=== PATIENT | male | born 1955 | race Two or more races ===

== ENCOUNTER 2017-10-31 07:17 | Day surgery (SDC) | payer BC, OTHER ==
[~2017-10-31] VITALS: Ht 172.7 cm; Wt 84.4 kg
[2017-10-31] VITALS (9 sets, daily range): BP systolic 107–125; BP diastolic 67–80
[2017-10-31] MEDS ORDERED: fentaNYL 100 mcg/2 mL IV ONE (07:40)
[2017-10-31] MEDS ORDERED: Propofol 200mg/20ml IV ONE (07:41)
--- NOTE | 2017-10-31 07:47 | Short Stay Surgery H&P ---
History of Present Illness History of Present Illness Chief Complaint Patients is receiving screening colonoscopy and upper endoscopy for abdominal pains. YANDY Robles is a 62 year old male who was admitted on for Colon Screening , abdominal pains Patient History Allergies: Coded Allergies: No Known Allergies (Unverified , 10/31/17) PAST MEDICAL HISTORY: (1) Hyperlipidemia (2) Hypertension Review of Systems Cardiovascular: Reports: no symptoms, hypertension Respiratory: Reports: no symptoms Skeletal: Reports: no symptoms Gastrointestinal: Reports: gastro esophageal reflux disease Genitourinary: Reports: no symptoms Neurologic: Reports: no symptoms Endocrine: Reports: no symptoms Hematologic: Reports: no symptoms Physical Exam Skin: normal HENT: normal Heart: normal Lungs: normal Abdomen: normal Extremities: normal Genitourinary: normal Plan Plan of Care Upper and lower GI endoscopies Preop Interventions None. Summary of Findings See the reports Attestation Are the patient's medical conditions optimized for surgery? Attestation Response: yes Nelson Malik MD Oct 31, 2017 07:47
--- NOTE | 2017-10-31 07:48 | Pre-Procedure Note/Attestation ---
Pre-Procedure Note/Attestation Complete Prior to Procedure Planned Procedure: left Procedure Narrative: Examinations of the upper and the lower GI tract via endoscopy Indications for Procedure Pre-Operative Diagnosis: R/O colon cancer and gastritis/peptic ulcer. Attestation I attest that I discussed the nature of the procedure; its benefits; risks and complications; and alternatives (and the risks and benefits of such alternatives ), prior to the procedure, with the patient (or the patient's legal retail field representative). I attest that, if there was a reasonable possibility of needing a blood transfusion, the patient (or the patient's legal retail field representative) was given the [facility] standardized written summary, pursuant to the Terrence Tano Blood Safety Act ([place] Health and Safety Code # 1645, as amended). I attest that I re-evaluated the patient just prior to the surgery and that there has been no change in the patient's H&P, except as documented below: Nelson Malik MD Oct 31, 2017 07:48
[2017-10-31] MEDS ORDERED: ASPIR 8181 MG ORAL (07:54)
[2017-10-31] MEDS ORDERED: METFORMIN HCL500 M1 ORAL (07:54)
[2017-10-31] MEDS ORDERED: ATORVASTATIN CA20 MG ORAL (07:54)
[2017-10-31] MEDS ORDERED: BP MED PO (07:54)
[2017-10-31] MEDS ORDERED: VITAMIN D1000 UNI1 ORAL (07:54)
[2017-10-31] MEDS ORDERED: LR 1000ml 1,000 ML IVLG SCH (07:58)
--- NOTE | 2017-10-31 07:58 | Anethesia Preoperative Eval ---
Anesthesia Pre-op PMH/ROS General Date of Evaluation: Oct 31, 2017 Time of Evaluation: 08:00 Anesthesiologist: ASA Score: ASA 2 Mallampati Score Class I : Soft palate, uvula, fauces, pillars visible Class II: Soft palate, uvula, fauces visible Class III: Soft palate, base of uvula visible Class IV: Only hard plate visible Mallampati Classification: Class II Surgeon: angel Diagnosis: abdominal pain Surgical Procedure: colonoscopy screening, egd Allergies: Coded Allergies: No Known Allergies (Unverified , 10/31/17) Medications: see eMAR Past Medical History Cardiovascular: Reports: HTN; Denies: CAD, [place], valve dz, arrhythmia, other Pulmonary: Denies: asthma, COPD, MELE, other Gastrointestinal/Genitourinary: Reports: GERD; Denies: CRI, ESRD, other Neurologic/Psychiatric: Reports: depression/anxiety; Denies: dementia, CVA, TIA, other Endocrine: Denies: DM, hypothyroidism, steroids, other HEENT: Denies: cataract (L), cataract (R), glaucoma, [place] (L), [place] (R), other Hematology/Immune: Denies: anemia, DVT, bleeding disorder, other Musculoskeletal/Integumentary: Denies: OA, RA, DJD, DDD, edema, other Anesthesia Pre-op Phys. Exam Physician Exam Last Vital Signs Date Time Temp Pulse Resp B/P (MAP) Pulse Ox O2 Delivery O2 Flow Rate FiO2 10/31/17 07:44 Room Air Constitutional: NAD Cardiovascular: RRR Respiratory: CTA Gastrointestinal: S/NT/ND Airway Exam Mallampati Score: Class II MO: full ROM: full Teeth: intact Dentures: no upper, no lower Anesthesia Pre-op A/P Risk Assessment & Plan Assessment: asa 2 Plan: MAC Status Change Before Surgery: No Pre-Antibiotics Drug: none Teresa Marr M.D. Oct 31, 2017 07:58
[2017-10-31] MEDS ORDERED: LR 1000ml ONE (08:00)
[2017-10-31] MEDS ORDERED: DiphenhydrAMINE 50mg/ml Inj IVP PRN (08:00)
[2017-10-31] MEDS ORDERED: Lidocaine 1% MPF 10mg/ml 5ml ONE (08:00)
[2017-10-31] MEDS ORDERED: fentaNYL 100 mcg/2 mL IV PRN (08:00)
--- NOTE | 2017-10-31 08:44 | Immediate Post-Op Evaluation ---
Immediate Post-Op Evalulation Immediate Post-Op Evalulation Procedure: egd, colonoscopy Date of Evaluation: Oct 31, 2017 Time of Evaluation: 08:46 IV Fluids: LR 500ml Blood Products: 0 Estimated Blood Loss: 0 Urinary Output: 0 Blood Pressure Systolic: 107 Blood Pressure Diastolic: 68 Pulse Rate: 51 Respiratory Rate: 14 O2 Sat by Pulse Oximetry: 99 Temperature (Fahrenheit): 97 Pain Score (1-10): 0 Nausea: No Vomiting: No Complications none Patient Status: awake, patent, none Drug: none Teresa Marr M.D. Oct 31, 2017 08:44
--- NOTE | 2017-10-31 08:47 | Endoscopy Procedure Note ---
Endoscopy Procedure Note General Indication for Procedure: GERDs/abdominal pains and screening colon Procedures Performed: EGD - Completely normal Upper GI endoscopy, biopsy was obtained per random from the gastric body., colonoscopy - Minimal garde I internal hemorrhoids. Diverticulosis of the colon, otherwise completely normal colon utpo the cecal base. Specimen: yes Pt Tolerated Procedure Well: Yes Estimated Blood Loss: none Anesthesia Anesthesiologist: Dr. Marr Anesthesia: moderate sedation Medications Medication Given: see anesthesia record Inserted Devices Implant(s) used?: No Quality Quality of Bowel Preparation: Good Did scope reach the cecum?: Yes Was there any complications?: No GI Core Measures 50 yrs or older w/o bx or poly: Yes 10yrs. F/U not recommended: Yes 10 yrs. F/U needed: Yes Med reason:<3 yrs.: System Reason:<3 yrs.: Last colonoscopy >= to 3yrs: Yes Nelson Malik MD Oct 31, 2017 08:47
--- NOTE | 2017-10-31 08:48 | Discharge Instructions ---
Discharge Instructions Discharge Instructions Follow up with: Call to visit doctor after 2 weeks For Congestive Heart Failure Reminder Report to your physician any weight gain of 5 pounds or more in one week. Nelson Malik MD Oct 31, 2017 08:48
--- NOTE | 2017-10-31 08:55 | 48 Hour Post Anesthesia Eval ---
Post Anesthesia Evaluation Procedure: egd, colonoscopy Date of Evaluation: Oct 31, 2017 Time of Evaluation: 09:00 Blood Pressure Systolic: 106 0: 72 Pulse Rate: 51 Respiratory Rate: 14 Temperature (Fahrenheit): 97.4 O2 Sat by Pulse Oximetry: 99 Nausea: No Vomiting: No Pain Intensity: 0 Mental Status/LOC: patient returned to baseline Post-Anesthesia Complications: none Follow-up care needed: ready to discharge Teresa Marr M.D. Oct 31, 2017 08:55
--- NOTE | 2017-10-31 17:00 | Operative Note - Dictated ---
DATE OF OPERATION: 10/31/2017 SURGEON: Nelson Malik M.D. PROCEDURE: Esophagogastroduodenoscopy with biopsy. PREOPERATIVE DIAGNOSES: Abdominal pain and history of chronic gastroesophageal reflux. POSTOPERATIVE DIAGNOSIS: Completely normal upper GI endoscopy. Biopsy was taken per random from gastric body. MEDICATION USED: Per Dr. Marr. INSTRUMENT: GIF Olympus upper GI video endoscope. DESCRIPTION OF PROCEDURE: The patient after arriving endoscopy unit, was told about risks and benefits of the procedure, which he accepted and signed informed consent. At this point, the patient was put on the left lateral decubitus position. After adequate IV sedation, the scope was gently passed through the cricopharyngeal area, was lodged into the upper esophagus, and gradually advanced towards gastroesophageal junction. The entire length of the esophagus was completely normal and there was no any evidence of inflammatory process, ulceration, stricture, varices, etc. GE junction also looked completely normal without any evidence of Wilkins's or hiatal hernia. At this time, the scope was passed into the stomach. Gastric cavity was distended with insufflation of air. The areas of the fundus and the body and the antrum were examined carefully and there was no any pathology. There was no ulcers or evidence of gastritis, hemangioma, etc. A retroflexion maneuver was also applied in areas of the fundus and gastroesophageal junction was examined in a closer fashion, which revealed completely normal findings. At this time, one random biopsy from gastric body was obtained and subsequently, the scope was passed through normal looking antrum into the pylorus. First and second portion of duodenum were also found to be completely normal. At this time, the scope was pulled out and the procedure was terminated. The patient tolerated the procedure well. Nelson Malik M.D. DR: ANGEL JOB#: [id number] CC:
--- NOTE | 2017-10-31 17:15 | Procedure Note ---
DATE OF PROCEDURE: 10/31/2017 SURGEON: Nelson Malik M.D. PROCEDURE: Total colonoscopy. PREOPERATIVE DIAGNOSIS: Screening colonoscopy. POSTOPERATIVE DIAGNOSIS: 1. Minimal grade 1 internal hemorrhoid. 2. Diverticulosis of the colon, otherwise completely normal total colonoscopy up to the base of the cecum as examined. MEDICATION USED: Per Dr. Marr. INSTRUMENT: GIF Olympus video colonoscope. DESCRIPTION OF PROCEDURE: The patient after arriving at the endoscopy unit, was told about risks and benefits of the procedure which he accepted and signed informed consent. At this time, he was put on the left lateral decubitus position. After adequate IV sedation, the scope was gently passed through the anal area and a retroflexion maneuver which was applied here revealed evidence of minimal internal hemorrhoid which was somewhat friable and evidence of hypertrophic anal papilla. Otherwise, the rest of the rectum looked completely normal. The scope at this time was passed through somewhat redundant left colon, which revealed evidence of diverticular lesions, which were not that significant and this lesions continued up to the level of distal transverse colon only. The whole length of the colon was examined and it was completely normal without any evidence of polyps, tumors, inflammatory process, stricture etc. Finally the scope reached to the base of the cecum and finding no other abnormalities. Within 6 minute the scope was gradually pulled out and no other findings of pathology was seen. The colon cleanup was also good. The patient tolerated the procedure well and left the endoscopy room in a good condition. Nelson Malik M.D. DR: Henrry JOB#: [id number] CC:
== END 2017-10-31 10:40 | disposition home or self-care (01) ==
LOC: GAS 07:17
DX: Z12.11 Encounter for screening for malignant neoplasm of colon (principal); K64.8 Other hemorrhoids; K57.30 Diverticulosis of large intestine without perforation or abscess without bleeding; R10.9 Unspecified abdominal pain; K21.9 Gastro-esophageal reflux disease without esophagitis; E78.5 Hyperlipidemia, unspecified; I10 Essential (primary) hypertension; F32.9 Major depressive disorder, single episode, unspecified; F41.9 Anxiety disorder, unspecified
CPT/HCPCS: 43239; 45378; 82962; J2250; J2704; J3010; J7120; 94003; 94150